=== PATIENT | male | born 1995 | race Two or more races ===

== ENCOUNTER 2017-01-02 02:15 | Emergency (ER) | payer OTHER ==
[~2017-01-02] VITALS: Ht 162.6 cm; Wt 72.1 kg
[2017-01-02 03:14] LABS: HEMOGLOBIN 15.1 g/dL (14.1-18.0); LYMPH # 0.7 K/mm3 (0.7-4.5); LYMPH % 7.6 % (10-50); URINE BILIRUBIN - DIPSTICK NEGATIVE (NEG); URINE BLOOD NEGATIVE (NEG)
[2017-01-02 03:16] LABS: URINE SQUAMOUS CELLS OCC #/hpf (OCC)
[2017-01-02 03:33] LABS: NEUTROPHILS 88 % (42-76)
--- NOTE | 2017-01-02 04:15 | Emergency Room Report ---
History of Present Illness Time Seen by MD Jimenez Presenting Problem in Triage Pt arrived:Walked Presenting Problem:possible tobacco sickness, however has been exposed to coworkers with fever and chills but not vomiting. CC vomited x2 Onset of symptoms date/time:01/02/17 or onset unknown for: Treatment Prior to Arrival: [employer] Provided by: Sepsis Risk Assessment: Temp: 97.4 B/P: 124/66 MAP: 85 Pulse: 98 Resp: 26 Recent fever? N Clinical Suspician of Infection? Y Mental Status: 1 - Regular (Normal Baseline) Sepsis Risk:Severe Sepsis Risk Have you (or family members/close friends) recently traveled outside the [place]? Y If Yes, where/when: [facility] Have you had exposure to infectious disease within the past month? N TB? Other? Specify: Source patient, RN notes reviewed, family, [facility] records Exam Limitations no limitations Comment pt with dizzyness and vomiting over the last few hrs - Cardiac Chest Pain Chest pain indicative of cardiac No Timing/Duration this evening Severity moderate ALLERGIES Coded Allergies: No Known Drug Allergies (NKDA) (01/02/17) Home Medications Reported Medications No Known Home Medications History Medical History Immunization Hx Ped.Immunizations UTD No DT/Tetanus Unknown Surgical Hx Previous Surgery?N Social History Smoking Hx Smoker: Never Smoker Tobacco: No Drugs none Review of Systems All Other Systems Reviewed and Negative Constitutional denies fever Eyes denies drainage ENT denies: ear pain, epistaxis, throat pain. Respiratory denies cough, denies shortness of breath, denies wheezing Cardiovascular denies chest pain, denies syncope Gastrointestinal see HPI, denies abdominal pain, denies diarrhea, nausea, vomiting Genitourinary denies: dysuria, frequency, hesitancy, hematuria. Musculoskeletal denies back pain, denies joint pain, denies joint swelling, denies neck pain Skin denies rash Psychiatric/Neurological denies headache, denies seizure Physical Exam Vital Signs Vital Signs Date Time Temp Pulse Resp B/P Pulse O2 O2 Flow FiO2 Ox Delivery Rate 01/02 0235 97.4 98 26 124/66 96 - WBC >12,000 or <4,000 or 10% bands? 2 or more SIRS Criteria Met? B/P:124/66 MAP:85 Creatinine >2.0? UA output<0.5ml/kg/hr for 2 hrs? Platelet count >100,000? Lactate >2.0mmol/1? INR >1.2 or PTT > than 60 sec? Evidence of Organ Dysfunction? Provider documented clinical suspician of infection? Y Sepsis Criteria Count: 2 Sepsis Risk: Severe Sepsis Risk General Appearance no apparent distress Eye Exam - bilateral eye PERRL, bilateral eye EOMI Ear, Nose, Throat normal ENT inspection Neck supple Respiratory Status No: respiratory distress. 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 No Results/Orders Laboratory Tests 01/02/17 0300: Sodium 136, Potassium 3.5, Chloride 102, Carbon Dioxide 30, BUN 12, Creatinine 0.9, Estimated Creat Clear 132, Estimated GFR (MDRD) 107, Glucose 106, Calcium 8.9, Total Bilirubin 0.5, AST 40 H, ALT 80 H, Alkaline Phosphatase 81, Total Protein 7.8, Albumin 4.3, Globulin 3.5 H, Albumin/Globulin Ratio 1.2, Amylase 71, Lipase 164, WBC 9.3, RBC 4.85, Hgb 15.1, Hct 43.9, MCV 90.6, RDW 12.9, Plt Count 237, MPV 9.4, Gran % 88.0 H, Gran # 8.2 H, Total Counted 100, Lymphocytes % 7.6 L, Monocytes % 2.7, Eosinophils % 1.5, Basophils % 0.3, Neutrophils 88 H, Band Neutrophils 4, Lymphocytes (Manual) 6 L, Lymphocytes # 0.7, Monocytes (Manual) 2, Monocytes # 0.3, Eosinophils # 0.1, Basophils # 0.0, RBC/WBC/PLT Morphology NORMAL, Platelet Estimate NORMAL, PUBS MCHC 34.3, MCH 31.1, Urine Color YELLOW, Urine Appearance CLEAR, Urine pH 7.0, Ur Specific [place] 1.015, Urine Protein TRACE H, Urine Ketones 1+ H, Urine Blood NEGATIVE , Urine Nitrate NEGATIVE, Urine Bilirubin NEGATIVE, Urine Urobilinogen 1.0, Ur Leukocyte Esterase NEGATIVE, Ur Squamous Epith Cells OCC, Amorphous Sediment 2+, Urine Mucus 1+, Urine Glucose NEGATIVE Current Medication Orders Sig/Lilly Start time Last Medication Dose Route Stop Time Status Admin Sodium Chloride 1,000 ML .STK-MED ONE 01/024 DC IV Ondansetron HCl 0 .STK-MED ONE 01/023 DC .ROUTE Ondansetron HCl 4 MG ONCE ONE 01/02 0300 DC 01/02 IV 01/02 0301 0318 Sodium Chloride 10 ML PRN PRN 01/02 0300 AC IV 01/03 0248 Sodium Chloride 1,000 ML .Q1H1M 01/02 0300 DC 01/02 IV 01/02 0400 0318 Sodium Chloride 10 ML PRN PRN 01/02 0300 AC IV 01/03 0249 Orders Procedure Date/time Status DIET-NOTHING BY MOUTH 01/[address] ABD & PELVIS W/O CONTRAST 01/02 0326 Active DIFFERENTIAL-WBC 01/[address] ABD/PELVIS REQ 01/02 0248 Active IV SALINE LOCK 01/02 0248 Active URINALYSIS/COMPLETE 01/02 0248 Complete LIPASE 01/02 0248 Complete CBC WITH AUTO DIFF 01/02 0248 Complete CHEM 12 PROFILE 01/02 0248 Complete AMYLASE 01/02 0248 Complete XRAY/CT/US XRAY/CT/US CT abdomen, pelvis CT interpretation by discussed w/radiologist Time results known: 410 CT Results normal/NAD Departure Departure Time of Disposition 411 Disposition DC Home or Self Care(routine) Clinical Impression Primary Impression: Tobacco poisoning Qualifiers: Encounter type: initial encounter Injury intent: accidental or unintentional Qualified Code: T65.291A - Toxic effect of other tobacco and nicotine, accidental (unintentional), initial encounter Condition STABLE Patient Instructions DI for Vomiting -- Adult Additional Instructions fluids and recheck if needed Discharge Counseling Counseled pt/family regarding diagnosis, test results, medications/RX, follow up needs Prescriptions Current Visit Scripts No Known Home Medications ED Critical Care Critical Care No at [id number]
[2017-01-02 04:44] VITALS: BP 170/67
--- NOTE | 2017-01-02 08:59 | RADIOLOGY REPORT PS360 ---
CT ABD PELVIS W/O CONTRAST CLINICAL INDICATION: VOMITING ORDERING PHYSICIAN: Jose Palm MD PATIENT AGE: 21 years COMPARISON: None TECHNIQUE: Axial images obtained with sagittal and coronal reformats. PROCEDURE: Oral Contrast: None IV Contrast: None . FINDINGS: Lung bases are clear. There is a 2.3 x 1.7 cm area of decreased attenuation along the falciform ligament probably related to focal fatty infiltration. The liver is otherwise unremarkable. Spleen, adrenal glands, pancreas, kidneys, ureters, and urinary bladder are unremarkable. No evidence of appendicitis, intestinal obstruction, or free air. No pelvic mass or focal inflammatory change. There is a small umbilical hernia containing fat. IMPRESSION: 1. No acute intra-abdominal or pelvic findings. 2. Probable focal fatty infiltration along the falciform ligament. No acute bony anomalies.
== END 2017-01-02 04:55 | disposition home or self-care (01) ==
LOC: ER 02:15
PROVIDERS: Emergency Medicine
DX: T65.291A Toxic effect of other tobacco and nicotine, accidental (unintentional), initial encounter (principal)
CPT/HCPCS: J2405